=== PATIENT | male | born 2005 | race Caucasian/White ===

== ENCOUNTER 2025-01-08 13:02 | Day surgery (SDC) | payer OTHER ==
[~2025-01-08] VITALS: Ht 177.8 cm; Wt 66.8 kg
[2025-01-08] VITALS (10 sets, daily range): BP systolic 112–142; BP diastolic 55–95
[~2025-01-08 13:02] MED LIST: IBUP200 PO; VITAMIN D5000 UNIT PO
[2025-01-08] MEDS ORDERED: Lactated Ringer's 1,000 ML IV SCH (13:45)
[2025-01-08] MEDS ORDERED: CeFAZolin Sodium 2,000 MG in NS 100 ML IV SCH (13:45)
[2025-01-08] MEDS ORDERED: Midazolam HCl 1MG / ML 2ML Vial ONE (16:48)
[2025-01-08] MEDS ORDERED: Midazolam HCl 1MG / ML 2ML Vial IV ONE (16:50)
[2025-01-08] MEDS ORDERED: propofoL 20 ML IV ONE (16:51)
[2025-01-08] MEDS ORDERED: Bupivacaine 0.5% HCl 5 MG/ML 30MLVIAL ONE (16:51)
[2025-01-08] MEDS ORDERED: FentaNYL Citrate 50 MCG/ML 2 ML Injection ONE ×2 (16:51→17:19)
[2025-01-08] MEDS ORDERED: Rocuronium Bromide 10 MG/ML 5ML Injection IV ONE (16:53)
[2025-01-08] MEDS ORDERED: Lidocaine HCl 2% 20 ML MDV ONE (16:53)
[2025-01-08] MEDS ORDERED: Ondansetron HCl 2 MG / ML 2ML Vial ONE (17:07)
[2025-01-08] MEDS ORDERED: Dexamethasone Sod Phos 10 MG/ML 1ML VIAL ONE (17:07)
[2025-01-08] MEDS ORDERED: Ketorolac Tromethamine 30mg Vial ONE (17:20)
[2025-01-08] MEDS ORDERED: Sugammadex Sodium 200 MG/2ML SDV (100 MG/ML) ONE (18:06)
--- NOTE | 2025-01-08 19:12 | NUR ---
PT UP TO GET DRESSED ON OWN. NANCY PO. DID NOT WANT NARCOTICE AND PAIN AT A TOLERABLE LEVEL AT THIS TIME. ALL BELONINGS RETUNED TO PT WITH GLASSES ON FACE. Patient up to Ambulate independently. Gait steady. Patient States Post-Procedure ride home has been arranged. Dressing to procedure site clean, dry, intact with no visible drainage, swelling, erythema or bruising noted. Discharged via wheelchair to private car for ride home. RECEVED DISCHARGE INSTRUCTIONS.
== END 2025-01-08 23:00 | disposition home or self-care (01) ==
LOC: ORSCMMR 13:02 → ORD 14:30 → ORSCMMR 14:30
PROVIDERS: Surgery
PROC: 8E0W4CZ Robotic Assisted Procedure of Trunk Region, Percutaneous Endoscopic Approach (ICD-10-PCS; principal; 2025-01-08 14:30)
PROC: 0YU64JZ Supplement Left Inguinal Region with Synthetic Substitute, Percutaneous Endoscopic Approach (ICD-10-PCS; principal; 2025-01-08 14:30)
DX: K40.30 Unilateral inguinal hernia, with obstruction, without gangrene, not specified as recurrent (principal)
CPT/HCPCS: J0690; J1100; J1885; J2250; J2405; J2704; J3010; J7120